=== PATIENT | male | born 1955 | race Caucasian/White ===

== ENCOUNTER → 2016-05-12 | Outpatient (CLI) | payer MEDICARE, OTHER | LOC: KOH-I 14:28 | DX: R51 Headache (principal); M51.26 Other intervertebral disc displacement, lumbar region; Z86.011 Personal history of benign neoplasm of the brain; E11.9 Type 2 diabetes mellitus without complications; I10 Essential (primary) hypertension; E78.5 Hyperlipidemia, unspecified; Q28.3 Other malformations of cerebral vessels; M54.5 Low back pain; F17.210 Nicotine dependence, cigarettes, uncomplicated; E53.8 Deficiency of other specified B group vitamins; E55.9 Vitamin D deficiency, unspecified; E11.40 Type 2 diabetes mellitus with diabetic neuropathy, unspecified; Z79.82 Long term (current) use of aspirin; Z79.84 Long term (current) use of oral hypoglycemic drugs; Z79.891 Long term (current) use of opiate analgesic; Z79.899 Other long term (current) drug therapy | CPT/HCPCS: 72148 ==

== ENCOUNTER 2016-07-15 18:40 | Emergency (ER) | payer MEDICARE, OTHER ==
[2016-07-15 19:49] LABS: HEMOGLOBIN 13.1 gm/dl (14.0-17.5); RED BLOOD COUNT 4.41 M/UL (4.20-5.50); WHITE BLOOD COUNT 6.8 K/UL (4.5-11.0)
[2016-07-15 20:07] LABS: BUN/CREATININE RATIO 12 (0-10)
== END 2016-07-15 23:52 | disposition home or self-care (01) ==
LOC: ER1 18:40
PROVIDERS: Emergency Medicine
DX: J44.1 Chronic obstructive pulmonary disease with (acute) exacerbation (principal); E11.9 Type 2 diabetes mellitus without complications; I10 Essential (primary) hypertension; F17.200 Nicotine dependence, unspecified, uncomplicated; Z79.84 Long term (current) use of oral hypoglycemic drugs; Z79.899 Other long term (current) drug therapy
CPT/HCPCS: 36415; 71020; 80053; 81001; 83880; 84484; 85025; 85610; 85730; 87040; 87086; 93005; 94640; 94664; 96365; 96367; 99285; J7050

== ENCOUNTER 2021-05-18 19:08 | Emergency (ER) | payer MEDICARE, OTHER ==
[~2021-05-18 19:08] MED LIST: NORCO 5-325 TA1 EACH PO; PREDNISONE20 MG PO; PROVENTIL HFA6.7 GM INH; Voltaren Gel 1 % TOP; ZITHROMAX500 MG PO
[2021-05-18 20:45] LABS: HEMOGLOBIN 10.5 gm/dl (14.0-17.5); RED BLOOD COUNT 3.74 M/UL (4.20-5.50); WHITE BLOOD COUNT 6.4 K/UL (4.5-11.0)
[2021-05-18 21:05] LABS: BUN/CREATININE RATIO 21 (0-10)
[2021-05-18] MEDS ORDERED: CEPHALEXIN500 M1 PO (21:57)
== END 2021-05-18 22:08 | disposition home or self-care (01) ==
LOC: ER1 19:08
PROVIDERS: Physician Assistant
DX: L03.031 Cellulitis of right toe (principal); E11.621 Type 2 diabetes mellitus with foot ulcer; L97.519 Non-pressure chronic ulcer of other part of right foot with unspecified severity; F17.210 Nicotine dependence, cigarettes, uncomplicated
CPT/HCPCS: 73630; 80053; 83605; 85025; 85652; 86140; 87040; 99283

== ENCOUNTER 2021-08-22 09:49 | Inpatient (IN) | payer MEDICARE, OTHER ==
[~2021-08-22] VITALS: Ht 175.3 cm; Wt 64.9 kg
[~2021-08-22 09:49] MED LIST changes: +CEPHALEXIN500 M1 PO
[2021-08-22] MEDS ORDERED: METFORMIN HCL1000 MG PO (15:01)
[2021-08-22] MEDS ORDERED: GABAPENTIN600 MG PO (15:01)
[2021-08-22 17:35] LABS: HEMOGLOBIN 10.4 gm/dl (14.0-17.5); RED BLOOD COUNT 4.03 M/UL (4.20-5.50); WHITE BLOOD COUNT 7.8 K/UL (4.5-11.0)
[2021-08-22 17:35] LABS: BUN/CREATININE RATIO 19 (0-10)
[2021-08-23 06:48] LABS: HEMOGLOBIN 9.3 gm/dl (14.0-17.5); RED BLOOD COUNT 3.63 M/UL (4.20-5.50); WHITE BLOOD COUNT 6.7 K/UL (4.5-11.0)
[2021-08-23 07:14] LABS: BUN/CREATININE RATIO 16 (0-10)
[2021-08-24 04:21] LABS: HEMOGLOBIN 9.1 gm/dl (14.0-17.5); RED BLOOD COUNT 3.47 M/UL (4.20-5.50); WHITE BLOOD COUNT 7.1 K/UL (4.5-11.0)
[2021-08-24 18:48] LABS: BUN/CREATININE RATIO 20 (0-10)
[2021-08-25 07:10] LABS: ESTIM. AVG GLU (EAG) 143 mg/dL (.); HEMOGLOBIN A1C 6.6 % (4.8-5.6)
[2021-08-25 08:14] LABS: CHOLESTEROL, TOTAL 190 mg/dL (100-199); HDL CHOLESTEROL 31 mg/dL (>39); LDL CHOLESTEROL CALC 124 mg/dL (0-99); T. CHOL/HDL RATIO 6.1 ratio (0.0-5.0); TRIGLYCERIDES 198 mg/dL (0-149)
== END 2021-08-25 01:14 | disposition short-term general hospital (02) | DRG 300 ==
LOC: M/S 14:48
PROVIDERS: Internal Medicine Cardiovascular Disease; Physician Assistant Medical; ADMIT Internal Medicine
PROC: B41G1ZZ Fluoroscopy of Left Lower Extremity Arteries using Low Osmolar Contrast (ICD-10-PCS; principal; 2021-08-24)
PROC: B41F1ZZ Fluoroscopy of Right Lower Extremity Arteries using Low Osmolar Contrast (ICD-10-PCS; 2021-08-24)
PROC: B44HZZZ Ultrasonography of Bilateral Lower Extremity Arteries (ICD-10-PCS; 2021-08-24)
DX: E11.52 Type 2 diabetes mellitus with diabetic peripheral angiopathy with gangrene (principal); M86.8X7 Other osteomyelitis, ankle and foot; Z20.822 Contact with and (suspected) exposure to COVID-19; F17.210 Nicotine dependence, cigarettes, uncomplicated; D64.9 Anemia, unspecified; I71.02 Dissection of abdominal aorta; E11.69 Type 2 diabetes mellitus with other specified complication; Z79.4 Long term (current) use of insulin; Z90.49 Acquired absence of other specified parts of digestive tract; Z83.3 Family history of diabetes mellitus; Z80.9 Family history of malignant neoplasm, unspecified
CPT/HCPCS: 36415; 73630; 75630; 80048; 80053; 80061; 80202; 82962; 83036; 83735; 85025; 85027; 85610; 87040; 93925; 99152; 99153; J1644; J2250; J2543; J3010; J3370; J7040; J7070; Q9965

== ENCOUNTER 2021-09-06 14:58 | Emergency (ER) | payer MEDICARE, OTHER ==
[~2021-09-06 14:58] MED LIST changes: +GABAPENTIN600 MG PO; +METFORMIN HCL1000 MG PO
[2021-09-06 16:05] LABS: RED BLOOD COUNT 3.53 M/UL (4.20-5.50); WHITE BLOOD COUNT 8.6 K/UL (4.5-11.0)
[2021-09-06 16:38] LABS: BUN/CREATININE RATIO 17 (0-10)
== END 2021-09-06 19:10 | disposition home or self-care (01) ==
LOC: ER1 14:58
PROVIDERS: Emergency Medicine
DX: R31.0 Gross hematuria (principal); D64.9 Anemia, unspecified; E11.9 Type 2 diabetes mellitus without complications; J44.9 Chronic obstructive pulmonary disease, unspecified; F17.200 Nicotine dependence, unspecified, uncomplicated; Z51.81 Encounter for therapeutic drug level monitoring
CPT/HCPCS: 80053; 81001; 85025; 85610; 85730; 99284